=== PATIENT | male | born 1965 | race Caucasian/White ===

== ENCOUNTER 2023-04-09 20:01 | Emergency (ER) | payer OTHER, SELFPAY ==
[2023-04-09 20:31] VITALS: BP 155/90; PULSE 88; RESP 18; TEMP 36.6; O2SAT 98; BMI 31.0
--- NOTE | 2023-04-09 21:33 | W.ED.WOUNDLC ---
HPI - Wound/Laceration General: Chief Complaint: Wound/Laceration Stated Complaint: cut arm Time Seen by Provider: 04/09/23 20:39 Source: patient Mode of arrival: ambulatory Limitations: no limitations History of Present Illness: 57-year-old male states he did lacerate his left elbow on a sprinkler will happen for 5 hours ago he has a 2 cm laceration over his left elbow he denies any pain he is unsure when his last tetanus was denies any decreased movement of the elbow. Associated symptoms: Denies chills, fever(s), nausea or vomiting Review of Systems Const: Denies: fever(s) or chills ENMT: Denies: throat pain or dental pain Card: Denies: chest pain Resp: Denies: dyspnea GI: Denies: abdominal pain, nausea, vomiting or diarrhea Musc: Denies: neck pain or back pain PFSH ED PFSH: Social History Smoking and tobacco status: current every day smoker Physical Exam Const: COMMON NORMALS: no acute distress, patient oriented x3 and healthy appearing HENMT: COMMON NORMALS: normocephalic and atraumatic HEAD & SCALP: normocephalic and atraumatic Eye: COMMON NORMALS: conjunctivae normal CONJUNCTIVA: Yes conjunctivae normal Neck/C-Spine: COMMON NORMALS: supple Chest: COMMONS NORMALS: normal inspection of the chest Resp: COMMON NORMALS: normal respiratory effort Cardio: COMMON NORMALS: regular rate, regular rhythm and No murmurs present (Cardio) RATE: regular rate RHYTHM: regular rhythm GI: INSPECTION: Yes normal to inspection Extremity: COMMON NORMALS: normal to inspection and full ROM NARRATIVE EXTREMITY EXAM: 2 cm laceration to left elbow Neuro: COMMON NORMALS: patient oriented x3, moves all extremities and no focal motor deficits Psych: COMMON NORMALS: mental status grossly normal, Normal thought process present and cooperative THOUGHT PROCESS: Normal thought process present Skin: COMMON NORMALS: no rashes or lesions noted GENERAL SKIN EXAM: no rashes or lesions noted Procedures Laceration Laceration 1: Site: upper extremity Side (If applicable): left Size (cm): 2 Description: linear Depth: simple, single layer Local Anesthetic: lidocaine 1% Amount of anesthesia used (mL): 4 Pre-repair: wound explored Skin layer closed with: nylon Size (cm): 4-0 Number of sutures: 3 Technique: simple, interrupted Course Vital Signs: Vital signs: Vital Signs Temperature 97.9 F 04/09/23 20:31 Pulse Rate 88 04/09/23 20:31 Respiratory Rate 18 04/09/23 20:31 Blood Pressure 155/90 04/09/23 20:31 Pulse Oximetry 98 04/09/23 20:31 Oxygen Delivery Me thod Room Air 04/09/23 20:31 MDM - Wound/Laceration Medical Decision Making Patient presents with laceration to his left elbow did repair the laceration he is to return for suture removal in 2 weeks. Discharge Plan Discharge Patient Disposition: Home Clinical Impression: Laceration Condition: Stable Prescriptions: No Action amoxicillin-pot clavulanate [Augmentin] 875-125 mg tablet 1 tab PO BID 10 Days Qty: 20 0RF Discharge Orders: Discharge ED (Routine); Ordered 04/09/23 Ordered By: Kolton Kruse Discharge Diet: Advance as tolerated Discharge Activity: Resume usual activity Patient Instructions: Care For Your Stitches (ED) Activity Restrictions/Additional Instructions: suture removal in 2 weeks Coding Level of Care Code ED Grinding Machine Tender for Nacho Webb
[2023-04-09] MEDS: tetanus-dipt-pertussis 0.5 mL SDV IM (21:43)
[2023-04-09 22:03] VITALS: BP 137/89
== END 2023-04-09 22:07 | disposition home or self-care (01) ==
PROVIDERS: Emergency Provider Emergency Medicine
DX: S51.012A Laceration without foreign body of left elbow, initial encounter (principal); W22.8XXA Striking against or struck by other objects, initial encounter; F17.210 Nicotine dependence, cigarettes, uncomplicated; Z23 Encounter for immunization
CPT/HCPCS: 12001; 90471; 90715; 99283